=== PATIENT | male | born 1995 | race African-American/Black ===

== ENCOUNTER 2020-11-15 18:40 | Emergency (ER) | payer SELFPAY ==
[~2020-11-15] VITALS: Ht 175.3 cm; Wt 142.6 kg
[2020-11-15] MEDS ORDERED: FAMOTIDINE 20 MG/2 ML VIAL IV ONE ×2 (19:15→20:10)
[2020-11-15] MEDS ORDERED: ACETAMINOPHEN 325 MG TAB PO ONE (19:15)
[2020-11-15] MEDS ORDERED: ACETAMINOPHEN 325 MG TAB ONE (20:10)
== END 2020-11-15 20:59 | disposition home or self-care (01) ==
LOC: FSED 18:49
DX: R07.89 Other chest pain (principal); R00.0 Tachycardia, unspecified; Z72.0 Tobacco use
CPT/HCPCS: 71046; 80053; 81003; 82553; 84484; 85025; 85379; 93005; 99284